=== PATIENT | female | born 1930 | race Caucasian/White ===

== ENCOUNTER 2017-09-06 17:38 | Emergency (ER) | payer OTHER ==
[~2017-09-06] VITALS: Ht 157.5 cm; Wt 51.7 kg
[2017-09-06 18:00] LABS: HEMATOCRIT 34.5 % (36.0-46.0); HEMOGLOBIN 12.4 G/DL (11.9-15.5); MCH 30.8 PG (29.0-34.0); MCHC 35.9 G/DL (30.0-36.0); MCV 85.8 FL (83-99); PLATELET COUNT 254 K/uL (156-360); RBC DIS.WIDTH-CV 12.8 % (11.8-14.6); RBC DIS.WIDTH-SD 40.1 % (39-53); RED BLOOD COUNT 4.02 M/uL (3.80-5.20)
[2017-09-06 18:07] LABS: INTER. NORMALIZED RATIO 1.1
[2017-09-06 18:09] LABS: CHLORIDE 93 mEq/L (99-109); POTASSIUM 4.1 mEq/L (3.7-5.4); SODIUM 126 mEq/L (136-147)
[2017-09-06 18:10] LABS: PTT 26.7 SEC (25-37)
[2017-09-06 18:11] LABS: GLUCOSE 127 mg/dL (70-99)
[2017-09-06 18:15] LABS: CREATININE 0.9 mg/dL (0.6-1.3); GFR ESTIMATE (CALCULATED) > 59 mL/min/
[2017-09-06 18:16] LABS: UREA NITROGEN (BUN) 21 mg/dL (9-23)
[2017-09-06 20:04] LABS: APPEARANCE CLEAR ((CLEAR)); BILIRUBIN NEGATIVE; BLOOD NEGATIVE; COLOR STRAW ((YELLOW)); GLUCOSE (STRIP) NEGATIVE; KETONES 20; LEUKOCYTES TRACE; NITRITE NEGATIVE; PROTEIN (STRIP) 30; SPECIFIC GRAVITY 1.013 (1.000-1.030); UROBILINOGEN 0.2 MG/DL (0.2-1.0)
[2017-09-06 20:12] LABS: BACTERIA RARE /HPF; EPITHELIAL CELLS RARE /HPF; MUCUS TRACE /LPF; RED BLOOD CELLS 0-5 /HPF (0-5); WHITE BLOOD CELLS 0-5 /HPF (0-5)
[2017-09-06 20:13] LABS: TROP-I INTERPRETATION NEGATIVE; TROPONIN-I 0.01 ng/mL (0.0-0.30)
[2017-09-06] MEDS ORDERED: CALCIUM 600+D1 EAC1 PO (21:26)
[2017-09-06] MEDS ORDERED: ACID REDUCER20 MG PO (21:27)
[2017-09-06] MEDS ORDERED: ZESTORETIC 20-1 EAC2 PO (21:27)
[2017-09-06] MEDS ORDERED: ASPIRIN81 M2 PO (21:28)
[2017-09-06] MEDS ORDERED: KLOR-CON20 MEQ PO (21:28)
[2017-09-06] MEDS ORDERED: ALPRAZOLAM0.5 MG PO (21:29)
[2017-09-06] MEDS ORDERED: MIRALAX17 GM PO (21:29)
[2017-09-06] MEDS ORDERED: TIROSINT75 MCG PO (21:30)
[2017-09-06] MEDS ORDERED: PRESERVISION A1 EAC2 PO (21:30)
[2017-09-06] MEDS ORDERED: PRILOSEC20 MG PO (21:30)
[2017-09-06] MEDS ORDERED: REFRESH OPTIVE10 M1 BOTH EYES (21:31)
[2017-09-06 22:28] VITALS: BP 152/66
== END 2017-09-06 22:42 ==
LOC: EME 17:38
PROVIDERS: Emergency Medicine
DX: S00.03XA Contusion of scalp, initial encounter (principal); E87.1 Hypo-osmolality and hyponatremia; D72.829 Elevated white blood cell count, unspecified; W18.30XA Fall on same level, unspecified, initial encounter; Y92.129 Unspecified place in nursing home as the place of occurrence of the external cause; F03.90 Unspecified dementia, unspecified severity, without behavioral disturbance, psychotic disturbance, mood disturbance, and anxiety; Z95.1 Presence of aortocoronary bypass graft
CPT/HCPCS: 70450; 71045; 72125; 80048; 81003; 84484; 85027; 85610; 85730; 93005; 99281; 99284; J7030